=== PATIENT | female | born 1995 | race Native Hawaiian/Other Pacific Islander ===

== ENCOUNTER → 2017-06-20 | Outpatient (CLI) | payer OTHER | END | disposition home or self-care (01) | LOC: GMAM 11:01 | PROVIDERS: ATTEND Family Medicine | DX: N39.0 Urinary tract infection, site not specified (principal) ==

== ENCOUNTER → 2017-06-27 | Outpatient (CLI) | payer OTHER | END | disposition home or self-care (01) | LOC: GMAM 20:08 | PROVIDERS: ATTEND Family Medicine | DX: R19.7 Diarrhea, unspecified (principal) ==

== ENCOUNTER → 2017-06-27 | Outpatient (CLI) | payer OTHER | END | disposition home or self-care (01) | LOC: GMAM 17:32 | PROVIDERS: ATTEND Family Medicine | DX: R53.83 Other fatigue (principal); R53.1 Weakness; E55.9 Vitamin D deficiency, unspecified; R10.11 Right upper quadrant pain ==

== ENCOUNTER → 2017-07-05 | Outpatient (CLI) | payer OTHER ==
--- NOTE | 2017-07-08 08:07 | US ---
EXAM DESCRIPTION: Gall Bladder CLINICAL HISTORY: ABDOMINAL PAIN COMPARISON: None available. FINDINGS: Aorta: Not well visualized. IVC: Visualized portions normal. Ascites: None. Pancreas: Partially obscured by overlying bowel gas but visualized portions normal. Liver: Liver echogenicity is likely within normal limits, and there is no mass or other focal liver lesion. No intrahepatic biliary duct dilation. The liver is not enlarged, and physiologic flow is noted in the main portal vein. Gallbladder/Common Duct: No stones, wall thickening, pericholecystic fluid or common duct dilation. Right Kidney: No stones, hydronephrosis, atrophy or mass. IMPRESSION: Limited evaluation of the pancreas, but no cholelithiasis or other abnormality to explain patient symptoms. Electronically signed by: Jamaal Angel MD 07/08/2017 8:05 AM [facility]
== END ==
LOC: US 09:00
PROVIDERS: ATTEND Family Medicine
DX: R10.11 Right upper quadrant pain (principal); R10.84 Generalized abdominal pain; R19.7 Diarrhea, unspecified; R53.83 Other fatigue; E55.9 Vitamin D deficiency, unspecified; E53.9 Vitamin B deficiency, unspecified

== ENCOUNTER → 2017-08-06 | Outpatient (CLI) | payer OTHER | LOC: GMAM 18:05 | PROVIDERS: ATTEND Family Medicine | DX: R10.84 Generalized abdominal pain (principal) ==